=== PATIENT | female | born 1965 | race Caucasian/White ===

== ENCOUNTER 2019-07-19 10:38 | Day surgery (SDC) | payer BC ==
[2019-07-14 15:31] VITALS: BMI 25.0
[~2019-07-19 10:38] MED LIST: LACTATED RINGERS 1,000 ML IV SCH; LIDOCAINE 1% 20 ML VIAL (10MG/ML) FOR IV START INTRADERMA PRN
[2019-07-19 10:55] VITALS: TEMP 97.8
[2019-07-19] MEDS ORDERED: LACTATED RINGERS 1,000 ML IV ONE (10:55)
[2019-07-19 11:06] LABS: Glucose,Whole Blood 92 mg/dL (75-99)
[2019-07-19] MEDS ORDERED: PROPOFOL 10 MG/ML 20 ML VIAL IV ONE (11:11)
--- NOTE | 2019-07-19 11:16 | P.GSHP ---
History of Present Illness H&P Date: 07/19/19 Chief Complaint: Family history colon cancer This a 53-year-old female with a strong family history for colon cancer. She'll stay for screening colonoscopy. She's had some issues with rectal bleeding and constipation. Past Medical History Past Medical History: GERD/Reflux Additional Past Medical History / Comment(s): chronic sinus problems,occas bleeding with stools and constipation,hx hypoglycemia History of Any Multi-Drug Resistant Organisms: None Reported Past Surgical History: Tubal Ligation, Uterine Ablation Additional Past Surgical History / Comment(s): colonoscopy Past Anesthesia/Blood Transfusion Reactions: No Reported Reaction Smoking Status: Never smoker - Past Family History Sister(s) Family Medical History: Cancer Additional Family Medical History / Comment(s): colon CA Mother Family Medical History: Diabetes Mellitus, Deep Vein Thrombosis (DVT) Medications and Allergies Home Medications Medication Instructions Recorded Confirmed Type Calcium 500-Vit D3 1000 Units 1 tab PO DAILY 07/14/19 07/19/19 History DULoxetine HCL [Cymbalta] 30 mg PO QAM 07/14/19 07/14/19 History Dayquil 1 dose PO DAILY PRN 07/14/19 07/19/19 History Loratadine 10 mg PO DAILY 07/14/19 07/14/19 History Multivit-Min/Iron/Folic/Lutein 1 each PO DAILY 07/14/19 07/14/19 History [Centrum Silver Women Tablet] Nyquil 1 dose PO HS PRN 07/14/19 07/19/19 History Omeprazole 20 mg PO BID 07/14/19 07/14/19 History traZODone HCL [Desyrel] 50 mg PO HS 07/14/19 07/14/19 History Allergies Allergy/AdvReac Type Severity Reaction Status Date / Time No Known Allergies Allergy Verified 07/14/19 15:18 Surgical - Exam Vital Signs Temp Pulse Resp BP Pulse Ox 97.8 F 74 18 114/56 97 07/19/19 10:54 07/19/19 10:54 07/19/19 10:54 07/19/19 10:54 07/19/19 10:54 - General well developed, well nourished, no distress - Eyes PERRL - ENT normal pinna - Neck no masses - Respiratory normal expansion - Cardiovascular Rhythm: regular - Abdomen Abdomen: soft, non tender - Genitourinary normal external genitalia - Integumentary no rash - Neurologic normal coordination Assessment and Plan Assessment: Family history: Cancer. We'll perform colonoscopy.
--- NOTE | 2019-07-19 11:28 | P.OP ---
Date of Procedure: 07/19/19 Preoperative Diagnosis: Family history of colon cancer Postoperative Diagnosis: Normal colonoscopy Procedure(s) Performed: Colonoscopy Anesthesia: MAC Surgeon: Stefan Campa Pathology: none sent Condition: stable Disposition: PACU Description of Procedure: PROCEDURE: The patient was placed on the endoscopy table in the lateral position. Digital rectal examination was performed which revealed no abnormalities. . Flexible colonoscope was then placed in the patient's anus and passed throughout the entire colon. The ileocecal valve was visualized. The cecum, ascending, transverse, descending and sigmoid colon were normal. The rectum was normal as well. There were no masses, polyps or diverticula noted in the entire colon. SUMMARY OF FINDINGS: Normal colonoscopy.
[2019-07-19 12:02] VITALS: BP 111/69; PULSE 65; RESP 18
== END 2019-07-19 12:01 | disposition home or self-care (01) ==
LOC: ORWHC2ENDO 10:38
PROVIDERS: ATTEND Surgery
DX: K62.5 Hemorrhage of anus and rectum (principal); K59.00 Constipation, unspecified; K21.9 Gastro-esophageal reflux disease without esophagitis; E16.2 Hypoglycemia, unspecified; M79.7 Fibromyalgia; G47.00 Insomnia, unspecified; J32.9 Chronic sinusitis, unspecified; Z80.0 Family history of malignant neoplasm of digestive organs; Z98.51 Tubal ligation status; Z98.890 Other specified postprocedural states; Z83.3 Family history of diabetes mellitus; Z79.899 Other long term (current) drug therapy
CPT/HCPCS: 45378; J2704

== ENCOUNTER → 2019-08-02 | Outpatient (CLI) | payer BC ==
--- NOTE | 2019-08-04 13:30 | MM ---
Reason for exam: screening (asymptomatic). History: Patient is postmenopausal. Physical Findings: A clinical breast exam by your physician is recommended on an annual basis and results should be correlated with mammographic findings. MG 3D Screening Mammo W/Cad Bilateral CC and MLO view(s) were taken. The breast tissue is heterogeneously dense. This may lower the sensitivity of mammography. There is no discrete abnormality. ASSESSMENT: Negative, BI-RAD 1 RECOMMENDATION: Routine screening mammogram of both breasts in 1 year.
== END | disposition home or self-care (01) ==
LOC: RADMAMWWP 11:09
PROVIDERS: ATTEND Family Medicine
DX: Z12.31 Encounter for screening mammogram for malignant neoplasm of breast (principal)
CPT/HCPCS: 77063; 77067

== ENCOUNTER → 2023-04-30 | Outpatient (CLI) | payer BC ==
--- NOTE | 2023-04-30 09:45 | USB ---
Reason for Exam: Clinical finding. Patient History: Menarche at age 10. First Full-Term at age 16. Postmenopausal. Risk Values: Nella 5 year model risk: 1.0%. NCI Lifetime model risk: 5.5%. Technique: Method: Targeted. Prior Study Comparison: 08/02/2019 Bilateral Screening Mammogram, [facility]. Findings: The upper outer quadrant of the left breast, the axilla of the left breast and the retroareolar of the left breast were scanned. Small lymph node is noted at the site of clinical concern measuring 9 x 5 mm with normal-appearing cortex and hilum. No suspicious appearing masses within the region of concern.. Manage Clinically. Overall Assessment: Benign, BI-RAD 2 Management: Screening Mammogram of both breasts in 1 year. A clinical breast exam by your physician is recommended on an annual basis and results should be correlated with mammographic findings. This exam should not preclude additional follow-up of suspicious palpable abnormalities. Results were given to the patient verbally at the time of exam. Electronically signed and approved by: Dexter Llanes M.D. Radiologis
== END | disposition home or self-care (01) ==
LOC: RADMAMWWP 08:53
PROVIDERS: ATTEND Family Medicine
DX: N63.32 Unspecified lump in axillary tail of the left breast (principal); Z78.0 Asymptomatic menopausal state
CPT/HCPCS: 77062; 77066

== ENCOUNTER → 2024-07-21 | Outpatient (CLI) | payer BC ==
--- NOTE | 2024-07-23 22:09 | BD ---
EXAMINATION TYPE: Axial Bone Density DATE OF EXAM: 07/21/2024 CLINICAL HISTORY: 58 years old Female. ICD-10 CODE: Z78.0 ASYMPTOMATIC Height: 66 Weight: 164 FRAX RISK QUESTIONS: Alcohol (3 or more units per day): no Family History (Parent hip fracture): yes Glucocorticoids (More than 3mos): no (Ex: prednisone, prednisolone, methylprednisolone, dexamethasone, and hydrocortisone). History of Fracture in Adulthood: yes Secondary Osteoporosis: 1. Type 1 Diabetes: no 2. Hyperthyroidism: no 3. Menopause before 45: no 4. Malnutrition: no 5. Chronic liver disease: no Rheumatoid Arthritis: no Current Tobacco Use: no RISK FACTORS HISTORY OF: Spine Fracture: l spine 2,3,4 When: 2003 Surgery to Spine/Hip(right/left)/Wrist (right/left): no EXAM MEASUREMENTS: Bone mineral densitometry was performed using the Info System. Bone mineral density about the R hip (g/cm2): 0.681 Bone mineral density about the L hip (g/cm2): 0.724 T Score values are as follows: -----R Neck: -2.5 -----L Neck: -2.3 -----R Total: -2.6 -----L Total: -2.3 Z Score values are as follows: -----R Neck: -1.4 -----L Neck: -1.2 -----R Total: -1.9 -----L Total: -1.5 Bone mineral density : baseline Bone mineral density about the L Wrist (g/cm2): 0.529 T Score values are as follows: -----Dist. R+U: -3.1 -----Prox. R+U: -2.1 -----Radius total: -2.4 Z Score values are as follows: -----Dist. R+U: -2.1 -----Prox. R+U: -1.2 -----Radius total: -1.4 Bone mineral density : baseline FRAX%s: The graph provided illustrates a 20.4 % chance for a major osteoporotic fx and a 4.0% chance for the hips probability for fx in 10 years time. IMPRESSION: Osteoporosis (T Score less than -2.5). There is increased fracture risk and therapy is usually indicated based on age. Re-Screen 1-2 years. NOTE: T-SCORE=SD OF THE YOUNG ADULT MEAN. [facility], , 07/23/2024 10:07 PM
--- NOTE | 2024-07-25 18:52 | MM ---
Reason for Exam: Screening (asymptomatic). Last mammogram was performed 1 year(s) and 3 month(s) ago. Patient History: Menarche at age 10. First Full-Term at age 16. Postmenopausal. Risk Values: Nella 5 year model risk: 1.0%. NCI Lifetime model risk: 5.3%. Prior Study Comparison: 08/02/2019 Bilateral Screening Mammogram, [facility]. 04/30/2023 Bilateral MG 3D diag mammo w/cad [facility], [facility]. Tissue Density: The breasts are heterogeneously dense, which may obscure small masses. Findings: Analyzed By CAD. There is no suspicious group of microcalcifications or new suspicious mass in either breast. Overall Assessment: Negative, BI-RAD 1 Management: Screening Mammogram of both breasts in 1 year. . Patient should continue monthly self-breast exams. A clinical breast exam by your physician is recommended on an annual basis. This exam should not preclude additional follow-up of suspicious palpable abnormalities. Note on Nella scores and lifetime risk: 1. A Nella score greater than 3% is considered moderate risk. If this is the case, consider specialist referral to assess eligibility for a risk reducing agent. 2. If overall lifetime risk for the development of breast cancer is 20% or higher, the patient may qualify for future screening with alternating mammogram and breast MRI. [facility], , 07/25/2024 6:49 PM. Electronically signed and approved by: Stefan Jimenez M.D. Radiologist
== END | disposition home or self-care (01) ==
LOC: RADMAMWWP 15:00
PROVIDERS: ATTEND Family Medicine
CPT/HCPCS: 77063; 77067; 77080